=== PATIENT | female | born 1975 | race African-American/Black ===

== ENCOUNTER 2017-08-27 14:50 | Emergency (ER) | payer OTHER ==
[2017-08-27] MEDS ORDERED: IPRATROPIUM/ALBUTEROL 3 ML NEB INH STA (15:25)
--- NOTE | 2017-08-27 15:27 | ED Physician Documentation ---
PD HPI DYSPNEA - Stated complaint Stated Complaint: SOA - Chief complaint Chief Complaint: Resp - History obtained from History obtained from: Patient - History of Present Illness Timing - onset: Yesterday Timing - details: Still present Worsened by: Coughing Associated symptoms: Cough, Chest pain / discomfort. No: Fever Similar symptoms before: Diagnosis (Reports history of pneumonia.) - Additional information Additional information: The patient is a 41-year-old female who states, "I just can't breathe." Her dyspnea started yesterday and has persisted today. She reports cough productive of scant sputum. She reports substernal chest tightness. She denies fever. On further review of systems she complains of headache, sore throat, and nausea. She denies vomiting or abdominal pain. She reports history of pneumonia in the past, but denies history of asthma. She does smoke cigarettes. Review of Systems Constitutional: denies: Fever, Myalgias Nose: reports: Congestion Throat: reports: Sore throat Cardiac: reports: Chest pain / pressure (substernal tightness) Respiratory: reports: Dyspnea, Cough GI: reports: Nausea. denies: Abdominal Pain, Vomiting : denies: Dysuria Skin: denies: Rash Musculoskeletal: denies: Back pain, Extremity swelling Neurologic: denies: Focal weakness, Numbness, Headache PD PAST MEDICAL HISTORY - Past Medical History Cardiovascular: None Respiratory: Pneumonia Endocrine/Autoimmune: None GI: None Musculoskeletal: Osteoarthritis - Past Surgical History General: Cholecystectomy - Present Medications Home Medications: Ambulatory Orders Medication Instructions Recorded Confirmed Albuterol Sulfate [Proventil Hfa 1 - 2 puffs INH Q4H PRN #1 inhaler 08/27/17 Inhaler] Inhaler, Assist Devices 1 each MC PRN PRN #1 spacer 08/27/17 [Aerochamber Mini] predniSONE [Prednisone] 30 mg PO DAILY #15 tablet 08/27/17 - Allergies Allergies/Adverse Reactions: Allergies Allergy/AdvReac Type Severity Reaction Status Date / Time No Known Drug Allergies Allergy Verified 08/27/17 15:02 - Social History Does the pt smoke?: Yes Smoking Status: Current every day smoker PD ED PE NORMAL - Vitals Vital signs reviewed: Yes (Initially hypertensive and tachycardic.) - General General: Alert and oriented X 3, Other (Obese, and appears dyspneic.) - HEENT HEENT: Atraumatic, Moist mucous membranes, Pharynx benign - Neck Neck: Supple, no meningeal sign, No adenopathy, No JVD - Cardiac Cardiac: No murmur, Other (Rapid rate, regular rhythm.) - Respiratory Respiratory: Other (Diffuse expiratory wheezing bilaterally, with prolonged expiratory phase.) - Abdomen Abdomen: Soft, Non tender - Back Back: No CVA TTP - Derm Derm: No rash - Extremities Extremities: No edema, No calf tenderness / cord - Neuro Neuro: Alert and oriented X 3, No motor deficit, Normal speech Results - Vitals Vitals: Oxygen O2 Source Room air - EKG (time done) 14:54 Rate: Rate (enter#) (128) Rhythm: Sinus tachycardia, LAE [place]: Normal Intervals: Normal [place] Ischemia: Q waves (V2, consistent with previous anteroseptal OR.) Computer interpretation: Agree with computer - Labs Labs: Laboratory Tests 08/27/17 08/27/17 08/27/17 16:10 16:10 16:10 WBC 11.7 H RBC 4.32 Hgb 9.8 L Hct 31.1 L MCV 72.0 L MCH 22.6 L MCHC 31.5 L RDW 17.4 H Plt Count 303 MPV 6.8 L Neut # 10.3 H Lymph # 0.6 L [place] # 0.4 Eos # 0.3 Baso # 0.0 Absolute Nucleated RBC 0.00 Nucleated RBC % 0.0 D-Dimer 322.4 H Sodium 134 L Potassium 3.6 Chloride 102 Carbon Dioxide 22 Anion Gap 10.0 BUN 10 Creatinine 0.8 Estimated GFR (MDRD) 96 Glucose 104 H Calcium 8.8 Troponin I B-Natriuretic Peptide 08/27/17 08/27/17 16:10 16:10 WBC RBC Hgb Hct MCV MCH MCHC RDW Plt Count MPV Neut # Lymph # [place] # Eos # Baso # Absolute Nucleated RBC Nucleated RBC % D-Dimer Sodium Potassium Chloride Carbon Dioxide Anion Gap BUN Creatinine Estimated GFR (MDRD) Glucose Calcium Troponin I < 0.04 B-Natriuretic Peptide 35 - Rads (name of study) CXR Radiology: Prelim report reviewed, EMP read contemporaneously, See rad report ( Normal 2 view chest radiography for age and body habitus.) PD MEDICAL DECISION MAKING - ED course Complexity details: reviewed results, re-evaluated patient, considered differential, d/w patient, d/w family ED course: The patient's presentation is most consistent with acute asthmatic bronchitis. CXR reveals no evidence of pneumonia. I doubt pulmonary embolus. Cardiac ischemia was considered, but is unlikely given negative troponin, and an EKG that reveals no acute ST abnormalities. CHF is unlikely with no vascular abnormality apparent on chest x-ray, and a normal BNP. Treatment in the emergency department included administration of DuoNeb nebulizer. This markedly improved the patient's symptoms, and resolved her chest tightness. On repeat auscultation she is moving air much better, although she does have ongoing scattered expiratory wheezes. She is being discharged with prescriptions for albuterol inhaler and AeroChamber , and prednisone. I discussed with her and her family the diagnosis, treatment and outpatient follow-up, as well as potentially worrisome signs or symptoms that should prompt reevaluation in the emergency department. Departure - Departure Disposition: 01 Home, Self Care Clinical Impression: Acute asthmatic bronchitis Condition: Stable Instructions: ED Bronchitis Asthmatic Follow-Up: [facility] Ambrosiochand[facility] Willingham [Provider Group] Prescriptions: Albuterol Sulfate [Proventil Hfa Inhaler] 1 - 2 puffs INH Q4H PRN #1 inhaler PRN Reason: Shortness Of Air/Wheezing Inhaler, Assist Devices [Aerochamber Mini] 1 each MC PRN PRN #1 spacer PRN Reason: Wheezing predniSONE [Prednisone] 30 mg PO DAILY #15 tablet Comments: Use albuterol inhaler as prescribed. Take prednisone daily for 5 days as prescribed. Follow up with your primary physician within 1-2 weeks. Call to schedule an appointment. Return to the emergency department if you develop increasing difficulty breathing, or otherwise worsening symptoms. Discharge Date/Time: 08/27/17 17:30
--- NOTE | 2017-08-27 15:51 | XRAY Report ---
EXAM: CHEST RADIOGRAPHY EXAM DATE: 08/27/2017 03:45 PM. CLINICAL HISTORY: Acute dyspnea. COMPARISON: None. TECHNIQUE: 2 views. FINDINGS: Lungs/Pleura: No focal opacities evident. No pleural effusion. No pneumothorax. Normal volumes. Mediastinum: Heart and mediastinal contours are unremarkable. Other: None. IMPRESSION: Normal 2-view chest radiography for age and body habitus. [facility] Referring Provider Line: [phone] SITE ID: [id number]
[2017-08-27 16:17] LABS: BASOPHILS % (AUTO) 0.4 %; EOSINOPHILS # (AUTO) 0.3 10^3/uL (0.0-0.7); EOSINOPHILS % (AUTO) 2.8 %; HGB - HEMOGLOBIN 9.8 g/dL (12.0-16.0); LYMPHOCYTES # (AUTO) 0.6 10^3/uL (1.5-3.5); LYMPHOCYTES % (AUTO) 5.4 %; MEAN CORPUSCULAR HEMOGLOBIN 22.6 pg (27.0-31.0); MEAN CORPUSCULAR HGB CONC 31.5 g/dL (32.0-36.0); MEAN PLATELET VOLUME 6.8 fL (7.9-10.8); MONOCYTES # (AUTO) 0.4 10^3/uL (0.0-1.0); MONOCYTES % (AUTO) 3.4 %; NEUTROPHILS # (AUTO) 10.3 10^3/uL (1.5-6.6); PLT - PLATELET COUNT 303 10^3/uL (130-450); RED BLOOD COUNT 4.32 10^6/uL (4.20-5.40); RED CELL DISTRIBUTION WIDTH 17.4 % (12.0-15.0); WHITE BLOOD COUNT 11.7 x10^3/uL (4.8-10.8)
[2017-08-27 16:30] LABS: CALCIUM 8.8 mg/dL (8.5-10.3); CREATININE 0.8 mg/dL (0.4-1.0)
[2017-08-27 17:29] VITALS: BP 114/86
== END 2017-08-27 17:30 | disposition home or self-care (01) ==
LOC: ED 14:50
DX: J20.9 Acute bronchitis, unspecified (principal); J45.998 Other asthma; F17.200 Nicotine dependence, unspecified, uncomplicated
CPT/HCPCS: 36415; 71046; 80048; 83880; 84484; 85025; 85379; 93005; 94640; 99283; 99284

== ENCOUNTER 2018-10-05 09:58 | Outpatient (CLI) | payer OTHER | END 2018-10-05 09:59 | disposition critical access hospital (66) | LOC: EMS 09:58 | PROVIDERS: ATTEND Surgery | DX: R06.02 Shortness of breath (principal); R53.83 Other fatigue; R42 Dizziness and giddiness | CPT/HCPCS: A0425; A0429 ==

== ENCOUNTER 2018-10-05 10:25 | Emergency (ER) | payer OTHER ==
--- NOTE | 2018-10-05 11:31 | XRAY Report ---
Reason: cough /SOA Procedure Date: 10/05/2018 Accession Number: [id number] / [id number] Procedure: XR - Chest 2 View X-Ray CPT Code: 57974 FULL RESULT: EXAM: CHEST RADIOGRAPHY EXAM DATE: 10/05/2018 11:19 AM. CLINICAL HISTORY: Productive cough, vomiting. COMPARISON: CHEST 2 VIEW 08/27/2017 3:36 PM. TECHNIQUE: 2 views. FINDINGS: Lungs/Pleura: No focal opacities evident. No pleural effusion. No pneumothorax. Normal volumes. Mediastinum: Heart and mediastinal contours are unremarkable. Other: None. IMPRESSION: Normal 2-view chest radiography. No focal consolidation identified. [facility]
[2018-10-05 11:47] LABS: ALBUMIN 3.8 g/dL (3.2-5.5); BASOPHILS % (AUTO) 0.4 %; BILIRUBIN,TOTAL 0.5 mg/dL (0.2-1.0); CALCIUM 8.6 mg/dL (8.5-10.3); CREATININE 0.7 mg/dL (0.4-1.0); EOSINOPHILS # (AUTO) 0.3 10^3/uL (0.0-0.7); EOSINOPHILS % (AUTO) 2.7 %; HGB - HEMOGLOBIN 8.4 g/dL (12.0-16.0); LYMPHOCYTES # (AUTO) 0.3 10^3/uL (1.5-3.5); LYMPHOCYTES % (AUTO) 3.4 %; MEAN CORPUSCULAR HEMOGLOBIN 20.9 pg (27.0-31.0); MEAN CORPUSCULAR VOLUME 69.5 fL (81.0-99.0); MEAN PLATELET VOLUME 7.4 fL (7.9-10.8); MONOCYTES # (AUTO) 0.4 10^3/uL (0.0-1.0); MONOCYTES % (AUTO) 4.5 %; NEUTROPHILS # (AUTO) 8.9 10^3/uL (1.5-6.6); PLT - PLATELET COUNT 258 10^3/uL (130-450); RED BLOOD COUNT 4.04 10^6/uL (4.20-5.40); RED CELL DISTRIBUTION WIDTH 18.8 % (12.0-15.0); TOTAL PROTEIN 7.8 g/dL (6.7-8.2)
[2018-10-05 12:23] LABS: PLATELET ESTIMATE, MANUAL NORMAL (130-450,000) (NORMAL); PLATELET MORPHOLOGY RARE GIANT PLATELETS (NORMAL)
[2018-10-05] MEDS ORDERED: ALBUTEROL NEB 2.5 MG/3 ML INH STA (12:26)
[2018-10-05] MEDS ORDERED: guaiFENesin/CODEINE 5 ML UDC PO STA (12:27)
--- NOTE | 2018-10-05 12:30 | ED Physician Documentation ---
PD HPI DYSPNEA - Stated complaint Stated Complaint: SOA - Chief complaint Chief Complaint: Resp - History obtained from History obtained from: Patient - History of Present Illness Timing - onset: Yesterday (Starting last night she developed chest congestion and a productive cough associated with vomiting and she became short of breath. She denies fevers. She was [place] [facility] [employer] [facility] who felt she looked quite ill and referred her here for further evaluation and treatment. She received a DuoNeb in route with significant improvement. She has no history of asthma or other cardiac or pulmonary diseases.) Review of Systems Constitutional: reports: Fatigue (chronic). denies: Fever, Chills Ears: denies: Ear pain Nose: denies: Rhinorrhea / runny nose, Congestion Cardiac: reports: Chest pain / pressure (right side) Respiratory: reports: Dyspnea, Cough, Wheezing GI: denies: Abdominal Pain PD PAST MEDICAL HISTORY - Past Medical History Past Medical History: Yes Cardiovascular: None Respiratory: Pneumonia Endocrine/Autoimmune: None GI: None Musculoskeletal: Osteoarthritis - Past Surgical History Past Surgical History: Yes General: Cholecystectomy Ortho: Arthroscopic surgery /[employer]: Dilation and currettage, Tubal ligation - Present Medications Home Medications: Ambulatory Orders Medication Instructions Recorded Confirmed Albuterol Sulfate [Proventil Hfa 1 - 2 puffs INH Q4H PRN #1 inhaler 08/27/17 Inhaler] Inhaler, Assist Devices 1 each MC PRN PRN #1 spacer 08/27/17 [Aerochamber Mini] predniSONE [Prednisone] 30 mg PO DAILY #15 tablet 08/27/17 Albuterol Sulf [Ventolin Hfa 1 - 2 puffs INH Q4HR PRN #1 inhaler 10/05/18 Inhaler] Azithromycin [Zithromax] 1 tab PO DAILY #6 tablet 10/05/18 guaiFENesin/CODEINE [Robitussin AC] 5 - 10 ml PO Q6H PRN #120 ml 10/05/18 predniSONE [Deltasone] 60 mg PO DAILY 5 Days tablet 10/05/18 - Allergies Allergies/Adverse Reactions: Allergies Allergy/AdvReac Type Severity Reaction Status Date / Time No Known Drug Allergies Allergy Verified 10/05/18 10:32 - Social History Does the pt smoke?: Yes Smoking Status: Current every day smoker Does the pt drink ETOH?: No Does the pt have substance abuse?: No - Immunizations Immunizations are current?: Yes - POLST Patient has POLST: No PD ED PE NORMAL - Vitals Vital signs reviewed: Yes - General General: Alert and oriented X 3, No acute distress - HEENT HEENT: PERRL, EOMI, Pharynx benign - Neck Neck: Supple, no meningeal sign, No bony TTP - Cardiac Cardiac: RRR, No murmur - Respiratory Respiratory: No respiratory distress, Other (Wheezy throughout without focal findings) - Abdomen Abdomen: Non tender - Extremities Extremities: No edema, No calf tenderness / cord - Neuro Neuro: Alert and oriented X 3, Normal speech Results - Vitals Vitals: Vital Signs - 24 hr 10/05/18 10/05/18 10:28 12:50 Temperature 36.4 C L Heart Rate 115 H 112 H Respiratory 24 22 Rate Blood Pressure 131/88 H 141/62 H O2 Saturation 98 98 Oxygen O2 Source Room air - EKG (time done) 1205 Rate: Rate (enter#) (110) Rhythm: Sinus tachycardia [place]: Normal Intervals: Normal [place] QRS: Normal Ischemia: Normal ST segments Computer interpretation: Agree with computer - Labs Labs: Laboratory Tests 10/05/18 10/05/18 10/05/18 11:25 11:25 11:25 WBC 10.0 RBC 4.04 L Hgb 8.4 L Hct 28.1 L MCV 69.5 L MCH 20.9 L MCHC 30.0 L RDW 18.8 H Plt Count 258 MPV 7.4 L Neut # (Auto) 8.9 H Lymph # (Auto) 0.3 L [place] # (Auto) 0.4 Eos # (Auto) 0.3 Baso # (Auto) 0.0 Absolute Nucleated RBC 0.00 Nucleated RBC % 0.0 Manual Slide Review Indicated WBC Morphology NORMAL APPEARANCE Platelet Estimate NORMAL (130-450,000) Platelet Morphology RARE GIANT PLATELETS RBC Morph Micro Appear 1+ MACROCYTOSIS D-Dimer Sodium 137 Potassium 3.5 Chloride 102 Carbon Dioxide 23 Anion Gap 12.0 BUN 11 Creatinine 0.7 Estimated GFR (MDRD) 112 Glucose 105 H Calcium 8.6 Total Bilirubin 0.5 AST 15 ALT 10 Alkaline Phosphatase 60 Troponin I < 0.04 Total Protein 7.8 Albumin 3.8 Globulin 4.0 Albumin/Globulin Ratio 1.0 Lipase 18 L 10/05/18 11:25 WBC RBC Hgb Hct MCV MCH MCHC RDW Plt Count MPV Neut # (Auto) Lymph # (Auto) [place] # (Auto) Eos # (Auto) Baso # (Auto) Absolute Nucleated RBC Nucleated RBC % Manual Slide Review WBC Morphology Platelet Estimate Platelet Morphology RBC Morph Micro Appear D-Dimer 261.1 H Sodium Potassium Chloride Carbon Dioxide Anion Gap BUN Creatinine Estimated GFR (MDRD) Glucose Calcium Total Bilirubin AST ALT Alkaline Phosphatase Troponin I Total Protein Albumin Globulin Albumin/Globulin Ratio Lipase - Rads (name of study) 2v chest Radiology: EMP read contemporaneously (NAD) PD MEDICAL DECISION MAKING - ED course Complexity details: reviewed old records (Her H&H is not too much lower than the last one on the chart. She is chronically heavy periods and gynecology follow- up was advised for consideration for something like ablation.) ED course: 41-year-old woman with what seems like a sudden onset bronchitis, somewhat ill- appearing and complicated by obesity but no cardiopulmonary disease. EKG was nonischemic, troponin negative, d-dimer negative (note that it flags as high but most authorities would use 500 as an appropriate cutoff for rule out of thromboembolic disease in this case). Feeling much better after nebs here. Departure - Departure Disposition: Home, Self Care Clinical Impression: Bronchitis Condition: Good Record reviewed to determine appropriate education?: Yes Instructions: ED Reactive Airway Disease, ED Bronchitis Asthmatic Prescriptions: Albuterol Sulf [Ventolin Hfa Inhaler] 1 - 2 puffs INH Q4HR PRN #1 inhaler PRN Reason: Shortness Of Air/Wheezing Azithromycin [Zithromax] 1 tab PO DAILY #6 tablet guaiFENesin/CODEINE [Robitussin AC] 5 - 10 ml PO Q6H PRN #120 ml PRN Reason: Cough predniSONE [Deltasone] 60 mg PO DAILY 5 Days tablet Comments: Call your doctor to arrange a follow-up appointment, make the next available appointment. In the interim, return anytime if worse or if new symptoms develop. Your blood pressure was elevated today on check into the emergency department. This does not mean that you have hypertension, it is a common phenomenon to come to the emergency department and have elevated blood pressure. I recommend that you see your primary care physician within the week to have it rechecked when you are feeling better.
[2018-10-05 13:28] VITALS: BP 110/60
== END 2018-10-05 13:30 | disposition home or self-care (01) ==
LOC: EDUNIT# → ED 10:25
DX: J40 Bronchitis, not specified as acute or chronic (principal); E66.9 Obesity, unspecified; F17.200 Nicotine dependence, unspecified, uncomplicated
CPT/HCPCS: 36415; 71046; 80053; 83690; 84484; 85025; 85379; 93005; 94640; 99283; A9270

== ENCOUNTER 2019-03-04 18:47 | Outpatient (CLI) | payer OTHER | END 2019-03-04 18:48 | disposition home or self-care (01) | LOC: DI 18:47 | PROVIDERS: ATTEND Family Medicine | DX: Z53.9 Procedure and treatment not carried out, unspecified reason (principal) ==

== ENCOUNTER 2020-05-31 12:51 | Outpatient (CLI) | payer OTHER ==
--- NOTE | 2020-06-01 09:55 | Mammography Report ---
BILATERAL DIGITAL SCREENING MAMMOGRAM 3D/2D: 05/31/2020 CLINICAL: Baseline exam. Routine screening. No prior exams were available for comparison. There are scattered fibroglandular elements in both br easts. There is an irregular low density focal asymmetry with an indistinct margin in the left breast at 1 o 'clock middle depth. No other significant masses, calcifications, or other findings are seen in either breast. IMPRESSION: INCOMPLETE: NEEDS ADDITIONAL IMAGING EVALUATION The irregular low density focal asymmetry in the left breast is indeterminate. Mediolateral and spot compression views as well as additional views with possible ultrasound are recommended. This exam was interpreted at Station ID: [id number]. NOTE: For mammograms, a report in lay terms will be sent to the patient. Approximately 15% of breast malignancies will not be visualized mammographically. In the management of a palpable breast mass, a negative mammogram must not discourage biopsy of a clinically suspicious lesion. Electronically Signed By: Srinivasa Santana M.D. ddp/penrad:05/31/2020 14:16:12 ACR BI-RADS Category 0: Incomplete 3340F PARENCHYMAL PATTERN: (A) - The breast(s) demonstrate(s) scattered fibroglandular densities. BI-RADS CATEGORY: (0) - 0 Mammo and [place] [id number] Immediate follow-up LATERALITY: (B)
== END 2020-05-31 12:52 | disposition home or self-care (01) ==
LOC: DI.N 12:51
PROVIDERS: ATTEND Physician Assistant
DX: Z12.31 Encounter for screening mammogram for malignant neoplasm of breast (principal); N64.89 Other specified disorders of breast

== ENCOUNTER 2020-07-02 10:20 | Outpatient (CLI) | payer OTHER ==
--- NOTE | 2020-07-03 13:38 | Ultrasound Report ---
LIMITED ULTRASOUND OF LEFT BREAST: 07/02/2020 CLINICAL: Patient returns today to evaluate an asymmetry in left breast. Comparison is made to exams dated: 07/02/2020 mammogram and 05/31/2020 mammogram - [facility]. Color flow and real-time ultrasound of the left breast upper outer quadrant were performed. Deleon sc soto images of the real-time examination were reviewed. There is segment of minimal duct ectasia in the left breast at 1 o'clock middle depth, approximately 14 cm from the nipple. This duct ectasia displays no posterior acoustic shadowing or enhancement. T his may or maynot correlates with mammography findings. Color flow imaging demonstrates that there i s no vascularity present. There is adjacent dense fibroglandular tissue. No other suspicious finding s identified in the left breast. IMPRESSION: PROBABLY BENIGN Segment of minimal duct ectasia in the left breast 1 o'clock with adjacent dense fibroglandular tissu e may or may not definitively correlate with nearly dispersed asymmetry seen on mammographic evaluati on and is probably benign. A follow-up left mammogram and an ultrasound in 6 months is recommended to demonstrate stability. Findings and recommendations were conveyed to the patient during today's evaluation. This exam was interpreted at Station ID: [id number]. Electronically Signed By: Anselmo Solitario M.D. aty/:07/02/2020 12:14:48 Ultrasound BI-RADS: 3 Probably benign BI-RADS CATEGORY: (3) - 3 Mammo and [place] [id number] 6 month follow-up LATERALITY: (L)
--- NOTE | 2020-07-03 13:38 | Mammography Report ---
UNILATERAL LEFT DIGITAL DIAGNOSTIC MAMMOGRAM 3D/2D: 07/02/2020 CLINICAL: Patient returns today to evaluate a focal asymmetry in the left breast. Comparison is made to exam dated: 05/31/2020 mammogram - [facility]. There are sca ttered fibroglandular elements in left breast. The previously described 1.1 cm irregular low density focal asymmetry with an indistinct margin in th e left breast at 1 o'clock middle depth appears less prominent and decreased in size. It appears to b e likely fibroglandular tissue. No other significant masses or calcifications are seen in the breast. IMPRESSION: INCOMPLETE: NEEDS ADDITIONAL IMAGING EVALUATION The 1.1 cm irregular low density focal asymmetry in the left breast remains indeterminate. An ultrasound is recommended for further evaluation and is scheduled to immediately follow this exami nation. This exam was interpreted at Station ID: [id number]. NOTE: For mammograms, a report in lay terms will be sent to the patient. Approximately 15% of breast malignancies will not be visualized mammographically. In the management of a palpable breast mass, a negative mammogram must not discourage biopsy of a clinically suspicious lesion. Electronically Signed By: Anselmo Solitario M.D. aty/:07/02/2020 11:14:44 ACR BI-RADS Category 0: Incomplete 3340F PARENCHYMAL PATTERN: (A) - The breast(s) demonstrate(s) scattered fibroglandular densities. BI-RADS CATEGORY: (0) - 0 Ultrasound [id number] Immediate follow-up LATERALITY: (L)
== END 2020-07-02 10:21 | disposition home or self-care (01) ==
LOC: DI 10:20
PROVIDERS: ATTEND Physician Assistant
DX: R92.2 Inconclusive mammogram (principal); N60.42 Mammary duct ectasia of left breast